=== PATIENT | female | born 1945 | race Caucasian/White ===

== ENCOUNTER 2016-12-31 18:44 | Inpatient (IN) | payer OTHER ==
[~2016-12-31] VITALS: Ht 165.1 cm; Wt 94.7 kg
--- NOTE | ~2016-12-31 | O ---
[facility] [place] [address] OPERATIVE REPORT Name: FLY SALGADO Tony Room #: 306-P [facility] IN .R.#: [id number] Admission: 12/31/16 Attend Phys: Terrence Charles MD Discharge: Date of : 43 Report #: [id number] THIS REPORT FOR: //name// CC: Marielena PATTON DATE OF SERVICE: 01/03/2017 PREOPERATIVE DIAGNOSIS: Left foot fourth toe osteomyelitis. POSTOPERATIVE DIAGNOSIS: Left foot fourth toe osteomyelitis. PROCEDURE: Left foot fourth toe amputation. SURGEON: Lucio Steven MD ANESTHESIA: General. ESTIMATED BLOOD LOSS: Minimal. DRAINS: No drains. TOURNIQUET TIME: 10 minutes. RELIEF DRILLER: ANNE Carter DESCRIPTION OF PROCEDURE: The patient brought to the operating room where she was placed under general anesthesia. Once under adequate general anesthesia, her left lower extremity was prepped and draped in a sterile manner. Extremity was elevated and a tourniquet placed to 250 mmHg. A fishmouth type incision was then made about the proximal phalanx of the fourth toe. This was dissected down through the soft tissue sharply to the bone. Purulence was encountered upon making the skin incisions. Dissection was carried sharply down to the metatarsophalangeal joint where the collateral ligaments were incised and the toe and bone were subsequently removed. The wound was then irrigated copiously and closed with 3-0 nylon for the skin. The wounds were dressed with Xeroform, 4 x 4s, and a sterile soft compressive dressing was placed. Tourniquet was let down approximately 10 minutes. Toes were pink and warm with good capillary refill. There were no complications from the procedure. The patient tolerated the procedure well and went to the recovery room without incident. <ELECTRONICALLY SIGNED> By: Lucio Steven MD 01/04/17 1123 [id number] Lucio Steven MD /nt
--- NOTE | ~2016-12-31 | S ---
[facility] [place] [address] SURGICAL PATH RPT PROCEDURE Name: FLY SALGADO Room #: 306-P ADM IN M.R.#: [id number] Admission: 12/31/16 Date of : 43 Discharge: Report #: [id number] Path Case #: [id number] PATHOLOGY REPORT COLLECTION DATE: 01/03/2017 RECEIVED DATE: 01/04/2017 SUBMITTING PHYS: Dr. Lucio Steven OTHER PHYS: Dr. Marielena Iglesias SPECIMEN(S) RECEIVED: A.Left 4th toe * * * * * * * * * * * * FINAL DIAGNOSIS: Toe, left fourth toe, amputation: - Marked acute inflammation associated with gangrenous necrosis extending into underlying bone, consistent with the provided history of osteomyelitis. - Bone at margin viable and without inflammation. (IUV:mgr; d/t: 01/06/17) PATHOLOGIST: Myriam Plunkett M.D. REPORT ELECTRONICALLY SIGNED BY: Myriam Plunkett M.D. DATE/TIME: 01/06/2017 16:07 * * * * * * * * * * * * GROSS PATHOLOGY: The specimen is received in formalin, labeled "Jose De Jesus-left fourth toe" is a 2 amputation specimen with white skin which measures 4.6 x 2.5 x 2.3 cm. The specimen displays an intact, yellow-romero toenail as well as moderate skin sloughing at the distal aspect. The plantar surface of the specimen at the distal end displays a 1.1 x 0.9 cm brownish red firm ulceration. The bone at the resection margin is jagged and uneven. The surgical resection margin is inked black. Sectioning through the specimens reveals whitish pink unremarkable soft tissue and yellow romero, hard, trabeculated bone. Geriatric Assistant sections of the specimen are submitted in cassette A1 following decalcification. (AKA; 01/05/2017) CLINICAL HISTORY: Osteomyelitis INITIAL CPT CODE(S): [address] [address] SURGICAL PATH RPT PROCEDURE Name: FLY SALGADO Tony Room #: 306-P ADM IN M.R.#: [id number] Admission: 12/31/16 Date of : 43 Discharge: Report #: [id number] Path Case #: [id number]; [id number] Professional services performed by [facility] at [address] , [place] [address] Technical services performed by [facility] at [address] [place] [address], [facility] [address] [address]. [facility] [address] [place] [address] PHONE: [phone] DIRECTOR: Vladislav Batista M.D. * * * END OF REPORT * * *
--- NOTE | ~2016-12-31 | HC ---
[facility] [place] [address] CONSULTATION Name: FLY SALGADO Tony Room #: 306-P [facility] IN ..#: [id number] Admission: 12/31/16 Attend Phys: Marielena Burks Discharge: Date of : 43 Report #: [id number] THIS REPORT FOR: //name// CC: Marielena PATTON DATE OF SERVICE: 01/01/2017 REASON FOR CONSULTATION: Left toe osteomyelitis. HISTORY OF PRESENT ILLNESS: The patient is a 71-year-old female with diabetes and diabetic neuropathy with Charcot left foot and ankle who reports increased pain, fevers and chills for approximately 3-4 days. Her noticed a wound over the plantar surface of her left fourth toe, tried to express some fluid, none was expressed. She reports redness began to spread at the dorsum of her foot and then presented herself to the emergency department to be evaluated. She was evaluated and admitted for IV antibiotics as well as an orthopedic consult. She does not recall any specific injury to her left foot and denies any prior problems. REVIEW OF SYSTEMS: MUSCULOSKELETAL: Denies any other extremity complaints or wounds. NEUROLOGIC: Reports history of diabetic neuropathy and reports absent sensation in both of her feet. PAST MEDICAL HISTORY: Significant for diabetes mellitus that per the patient is not well controlled, hypertension, hyperlipidemia, diabetic neuropathy, history of a PE. PAST SURGICAL HISTORY: Right foot surgery due to an infection, appendectomy, , history of breast cancer with a right lumpectomy and appendectomy. SOCIAL HISTORY: She lives with her , does not use any ambulatory aids. Denies smoking or drinking alcohol. MEDICATIONS: Reported medications include amlodipine, glimepiride, latanoprost, metformin, insulin, gabapentin, warfarin, anastrozole, hydrocodone, lovastatin, and losartan. LABORATORY STUDIES: Done on 12/31/2016 showed white blood cell count 15.7, hemoglobin 11.8, hematocrit 36.9, platelet count 246. White blood cell count done on 01/01/2017 decreased to 14.2. INR on 01/01/2017 is 1.9. Chemistry on 01/01/2017 shows low sodium of 134, elevated glucose at 250. Hemoglobin A1c is pending. PHYSICAL EXAMINATION: [facility] [address] [place] [address] CONSULTATION Name: FLY SALGADO Room #: 306-P [facility] IN [facility].#: [id number] Admission: 12/31/16 Attend Phys: Marielena Burks Discharge: Date of : 43 Report #: [id number] GENERAL: The patient is alert and oriented. She interacts appropriately. She is a well-developed, well-nourished female who converses well. She is in no acute distress. VITAL SIGNS: Most recent vital signs show temperature of 37.7, heart rate is 104, respiratory rate 20, blood pressure 134/76, pulse oximetry is 94% on room air. EXTREMITIES: I am unable to palpate dorsalis pedis or posterior tib pulse. She does have brisk capillary refill. She has a Charcot type deformity to her foot and ankle. She has mild to moderate erythema over the dorsum of her foot to the hindfoot region dorsally. She does not have any plantar erythema. She has a small scab measuring approximately 3 mm over the plantar surface of her fourth toe distally. There is no drainage. RADIOGRAPHS: Three views, AP, lateral and oblique of the left foot showed views of the left fourth toe. She had some diffuse arthritic changes as well as lateral dislocation of the lateral four rays, metacarpals. There appears to be some destruction of the fourth toe distal phalanx. IMPRESSION AND PLAN: Probable left fourth toe osteomyelitis. At this point, we will recommend a CRP and sed rate as well as an MRI to evaluate the extent of the osteomyelitis to determine possible amputation level. The patient most likely will require an amputation of the toe. She will be followed by one of my [facility] (formerly [facility]) partners this weekend. I discussed the diagnosis as well as treatment options and questions were encouraged and answered to the best of my ability. By: [id number] Lani Wolf MD /nt
--- NOTE | ~2016-12-31 | HC ---
[facility] [place] [address] CONSULTATION Name: FLY SALGADO Tony Room #: 306-P [facility].#: [id number] Admission: 12/31/16 Attend Phys: Terrence Charles MD Discharge: 01/07/17 Date of : 43 Report #: [id number] THIS REPORT FOR: //name// CC: Terrence PATTON DATE OF SERVICE: 01/06/2017 WOUND CARE CONSULTATION PERSONAL PHYSICIAN: Marielena Burks M.D. CHIEF COMPLAINT: Surgical wound, left fourth toe. HISTORY OF PRESENT ILLNESS: This is a 71-year-old black female who was admitted through the emergency department for bleeding of the left fourth toe. The patient supposedly states in the past week, she started having pain, swelling and redness on the left fourth toe, extending up to the dorsal aspect of her left foot. The patient states that she did not really have much pain, but just noted bleeding and swelling. The patient had a long-standing history of diabetic neuropathy. The patient states she also had fevers and chills yesterday, which actually prompted her to come to the emergency department and seek treatment. The patient states she has had a previous wound in the past on her right foot after she stepped on a nail, which actually required surgical debridement several years ago. The patient denies any trauma to the left toe. The patient denies any other recent illnesses or concerns. PAST MEDICAL HISTORY: Significant for hypertension, insulin-dependent diabetes, hyperlipidemia, severe diabetic neuropathy, breast cancer with right-sided lumpectomy and previous right foot surgery secondary to infection. CURRENT MEDICATIONS: Multiple, I reviewed the patient's medication list. DRUG ALLERGIES: CODEINE. SOCIAL HISTORY: The patient does not smoke or drink alcohol. FAMILY HISTORY: Not pertinent to current medical condition. REVIEW OF SYSTEMS: CONSTITUTIONAL: The patient had fevers and chills prior to coming to the emergency department, but denies any in the past 24 hours. NEUROLOGIC: The patient denies numbness, tingling or weakness in arms or legs. EYES: No complaints. ENT: No complaints. CARDIAC: The patient denies chest pain, palpitations or peripheral edema. [facility] [address] [place] [address] CONSULTATION Name: FLY SALGADO Tony Room #: 306-P [facility]#: [id number] Admission: 12/31/16 Attend Phys: Terrence Charles MD Discharge: 01/07/17 Date of : 43 Report #: [id number] RESPIRATORY: The patient denies shortness of breath, cough or wheezes. GASTROINTESTINAL: The patient denies nausea, vomiting or abdominal pain. GENITOURINARY: The patient denies urgency or frequency. MUSCULOSKELETAL: No complaints. SKIN: There is a surgical wound amputations on to the left fourth toe. PHYSICAL EXAMINATION: VITAL SIGNS: T-max 36.9 and rest of the vitals are stable. GENERAL: This is an alert and oriented times 3, very pleasant black female who is absolutely in no distress. HEENT: Normocephalic, atraumatic. Mucous membranes are moist. Pupils are round. Sclerae are white. NECK: Without JVD or masses. BACK: Nontender. LUNGS: Clear. HEART: Regular, without murmur. ABDOMEN: Soft, nontender. EXTREMITIES: The patient moves all extremities without difficulty. Distal pulses are slightly diminished, dorsalis pedis and posterior tibial, with 1-2+ edema. Evaluation of the left fourth toe reveals a surgical amputation site which is somewhat macerated with serosanguineous drainage without odor. There is moderate amount of drainage. There are no signs of dehiscence of the incisional site. There are no signs of erythema, warmth or any further signs of cellulitis. No other associated ulcerations on the wound are noted on the left foot. Right lower extremity without ulcerations. Right heel is intact. NEUROLOGIC: Cranial nerves 2-12 are grossly. Motor and sensory grossly intact. LABORATORY DATA: White count 7.9 and hemoglobin 9.4. WOUND CARE COURSE: I spoke at length with the patient and stated that at this point in time, it appears that her wound is slightly more moist than I would like. We will start her on silver alginate to the area and change this once every other day. We will make sure she has home health nurses set up to discharge to continue the dressing changes until she can follow up in my clinic within the next 7-10 days. Given the fact that she has decreased pulses and an open wound on her left lower extremity and the patient states she has not had any arterial Dopplers done to her knowledge, we will check an arterial Doppler, the results of which will be pending at this time. I will also encourage the patient to maximize her oral protein supplementation for healing and once again, encourage her to follow up in my clinic within the next 7-10 days for further evaluation of the wound. IMPRESSION: 1. Methicillin-resistant Staphylococcus aureus infection to the left fourth toe, now status post left fourth toe amputation. 2. Diabetes mellitus. [facility] [address] [place] [address] CONSULTATION Name: FLY SALGADO Room #: 306-P [facility] IN .R.#: [id number] Admission: 12/31/16 Attend Phys: Terrence Charles MD Discharge: 01/07/17 Date of : 43 Report #: [id number] 3. Generalized debility. 4. Hypertension. PLAN: At this point in time, the patient will go home on oral antibiotics per infectious disease recommendations. The patient will follow up with her primary care physician in regards to her diabetes and neuropathy. We will see the patient in my clinic in 7-10 days for further wound followup. We will continue with home health nurses come in out every other day to do silver alginate dressings to the amputation site, and I will maximize the patient's oral protein supplementation as above. I appreciate the ability to consult. <ELECTRONICALLY SIGNED> By: Blaise Kinney MD 01/15/17 1219 [id number] Blaise Kinney MD /nt
--- NOTE | ~2016-12-31 | HC ---
[facility] [place] [address] CONSULTATION Name: FLY SALGADO Tony Room #: 306-P [facility] IN ..#: [id number] Admission: 12/31/16 Attend Phys: Terrence Charles MD Discharge: Date of : 43 Report #: [id number] THIS REPORT FOR: //name// CC: Terrence PATTON DATE OF SERVICE: 01/04/2017 ATTENDING PHYSICIAN: Terrence Charles MD REASON FOR CONSULTATION: MRSA infection, left fourth toe, antibiotic management. HISTORY OF PRESENT ILLNESS: The patient is a 71-year-old -[place] woman, extremely nice person admitted with painful swelling, left fourth toe diagnosed to have osteomyelitis for which she undergoes surgical intervention by Dr. Lucio Steven and consisting of resection of the left fourth toe and drainage of abscess with primary closure. I discussed the patient's situation with Dr. Lucio Steven today who requested that dressing not be removed till tomorrow when we will try to do that together. Cultures of the infected toe revealed growth of group B streptococcus and methicillin-resistant Staphylococcus aureus. Currently, the patient on vancomycin and Zosyn and Dr. Charles requested I evaluate the patient regarding infection and home antibiotic management. The patient is alert, comfortable, in no distress. PAST MEDICAL HISTORY: Diabetes mellitus, Charcot joint of the left foot. History of right breast cancer status post lumpectomy and on treatment with anastrozole. The patient on oral hypoglycemic agents. History of glaucoma. Hypertension. DRUG ALLERGIES: CODEINE. MEDICATIONS: She is on treatment with Zosyn 3.37 grams IV every 6 hours, vancomycin 1 g IV every 12 hours. She is also receiving treatment with losartan, anastrozole, amlodipine, glimepiride, enoxaparin, insulin lispro and insulin detemir, atorvastatin, gabapentin, insulin lispro per sliding scale, calcium carbonate p.r.n., hydrocodone p.r.n., Benadryl p.r.n., fentanyl p.r.n., and warfarin 5 mg daily. SOCIAL HISTORY: See H and P. FAMILY HISTORY: See H and P, old records. REVIEW OF SYSTEMS: Noncontributory. PHYSICAL EXAMINATION: [facility] [address] [place] [address] CONSULTATION Name: FLY SALGADO Room #: [address] [place] [address] [place] [facility].#: [id number] Admission: 12/31/16 Attend Phys: Terrence Charles MD Discharge: Date of : 43 Report #: [id number] GENERAL: Well-developed woman, not toxic looking. VITAL SIGNS: Temperature 100.4 yesterday, 99.3 today, pulse 96, respirations 20, BP 154/99. HEENMT: Head normocephalic, atraumatic. Pupils reactive. Mouth: No thrush. NECK: Supple. No thyromegaly or lymphadenopathy. LUNGS: Clear. HEART: S1, S2. BREASTS: Surgical scar, right breast, status post lumpectomy. LYMPH NODE: Negative. ABDOMEN: Benign, no masses or megaly. PELVIC AND RECTAL: Deferred. EXTREMITIES: Charcot deformity, left foot. Dressings intact and not removed at Dr. Steven's request. NEUROLOGIC: Grossly within normal limits. LABORATORY DATA: Sodium 134, potassium 3.7, BUN 14, creatinine 1, glucose 250, WBC 14.9, hemoglobin 9.3, platelets 297,000. Vancomycin trough was 15 on January 02, repeat today is pending. The hemoglobin A1c elevated 10.7%, average sugars 270. MICROBIOLOGY DATA: Culture of the toe revealed group B streptococcus and methicillin-resistant Staphylococcus aureus. RADIOLOGY EVALUATION: MRI of the foot revealed osteomyelitic changes of the left fourth toe, distal phalanx. No involvement of the proximal phalanx. ASSESSMENT: 1. Osteomyelitis, distal phalanx, left fourth toe, status post surgical resection. 2. Infection with group B streptococcus and methicillin-resistant Staphylococcus aureus. 3. Diabetes mellitus. 4. Charcot joint, left foot. 5. History of right breast cancer. SUGGESTIONS: Recommend to discontinue Zosyn. Continue vancomycin. We will remove the dressings tomorrow and try to make determine what antibiotic to use once she is discharged home. Discussed the patient's situation with Dr. Lucio Steven and Dr. Terrence Charles. Dr. Charles, thank you for requesting my suggestions. <ELECTRONICALLY SIGNED> By: Justin Fernando MD 01/05/17 0845 [id number] Justin Fernando MD /nt
[2016-12-31 18:45] VITALS: BP 131/70
[2016-12-31] MEDS ORDERED: XALATAN2.5 ML OPHTHALMIC (19:11)
[2016-12-31] MEDS ORDERED: METFORMIN HCL1000 MG PO (19:11)
[2016-12-31] MEDS ORDERED: AMLODIPINE BESY10 MG PO (19:11)
[2016-12-31] MEDS ORDERED: AMARYL4 MG PO (19:11)
[2016-12-31] MEDS ORDERED: NOVOLOG FL100 UNIT/M SC (19:12)
[2016-12-31] MEDS ORDERED: NEURONTIN 300300 M1 PO (19:12)
[2016-12-31] MEDS ORDERED: LEVEMIR FL100 UNIT/2 SQ (19:12)
[2016-12-31] MEDS ORDERED: COUMADIN 5 MG TA5 M1 PO (19:13)
[2016-12-31] MEDS ORDERED: ANASTROZOLE1 MG PO (19:14)
[2016-12-31] MEDS ORDERED: LOVASTATIN40 MG PO (19:15)
[2016-12-31] MEDS ORDERED: LOSARTAN-HCTZ1 EAC1 PO (19:15)
[2016-12-31] MEDS ORDERED: OXYCODONE-ACET1 EACH PO (19:15)
[2016-12-31 20:00] LABS: HEMATOCRIT 36.9 % (37.0-47.0); HEMOGLOBIN 11.8 gm/dL (12.0-15.0); MANUAL DIFF YES; MCH 24.5 pg (26.0-34.0); MCV 76.6 fL (80.0-100.0); PLATELET COUNT 246 thou/uL (150-400); RBC 4.82 mil/uL (4.20-5.00); RDW 15.7 % (10.5-14.5); WBC 15.7 thou/uL (4.0-11.0)
[2016-12-31 20:07] LABS: CALCIUM 9.3 mg/dL (8.5-10.1); CREATININE 1.3 mg/dL (0.6-1.0); POTASSIUM 3.5 mmol/L (3.5-5.1)
[2016-12-31 20:27] LABS: ABSOLUTE NEUTROPHILS 11.8 thou/uL (1.4-8.2); TOTAL CELL COUNT 100
[2016-12-31 20:52] VITALS: BP 152/89
[2016-12-31 21:10] VITALS: BP 141/72
[2016-12-31 23:40] VITALS: BP 152/90
[2016-12-31 23:48] LABS: PROTIME 20.4 Seconds (9.3-11.4)
[2017-01-01 03:51] LABS: CALCIUM 8.8 mg/dL (8.5-10.1); POTASSIUM 3.7 mmol/L (3.5-5.1)
[2017-01-01 03:52] LABS: HEMATOCRIT 31.1 % (37.0-47.0); MCH 24.3 pg (26.0-34.0); MCV 75.8 fL (80.0-100.0); RBC 4.11 mil/uL (4.20-5.00); RDW 15.4 % (10.5-14.5); WBC 14.2 thou/uL (4.0-11.0)
[2017-01-01 03:57] LABS: INR 1.9; PROTIME 19.4 Seconds (9.3-11.4)
[2017-01-01 04:20] VITALS: BP 134/76
[2017-01-01 08:22] VITALS: BP 1222/71
[2017-01-01 17:26] VITALS: BP 140/71
[2017-01-01 19:49] VITALS: BP 112/56
[2017-01-02 03:19] LABS: GLYCOHEMOGLOBIN (HGB A1C) 10.7 % (4.8-5.6)
[2017-01-02 03:55] VITALS: BP 128/61
[2017-01-02 05:59] LABS: INR 1.5; PROTIME 15.7 Seconds (9.3-11.4)
[2017-01-02 08:03] VITALS: BP 145/70
[2017-01-02 09:35] LABS: HEMOGLOBIN 10.2 gm/dL (12.0-15.0); MCH 24.3 pg (26.0-34.0); MCV 75.9 fL (80.0-100.0); RBC 4.21 mil/uL (4.20-5.00); RDW 15.9 % (10.5-14.5); WBC 15.4 thou/uL (4.0-11.0)
[2017-01-02 16:37] VITALS: BP 150/79
[2017-01-02 20:06] VITALS: BP 143/74
[2017-01-03 04:20] VITALS: BP 128/64
[2017-01-03 04:49] LABS: ABSOLUTE NEUTROPHILS 9.4 thou/uL (1.4-8.2); BASOPHILS 0.8 % (0.0-2.0); EOSINOPHILS 1.5 % (0.0-3.0); HEMATOCRIT 29.7 % (37.0-47.0); HEMOGLOBIN 9.3 gm/dL (12.0-15.0); LYMPHOCYTES 22.9 % (24.0-44.0); MCHC 31.4 g/dL (28.0-37.0); MCV 76.4 fL (80.0-100.0); MONOCYTES 11.4 % (1.0-8.0); PLATELET COUNT 297 thou/uL (150-400); POLYS 63.4 % (36.0-66.0); RBC 3.88 mil/uL (4.20-5.00); RDW 15.5 % (10.5-14.5); WBC 14.9 thou/uL (4.0-11.0)
[2017-01-03 04:54] LABS: MANUAL DIFF NO
[2017-01-03 05:00] LABS: INR 1.4; PROTIME 14.7 Seconds (9.3-11.4)
[2017-01-03 07:14] VITALS: BP 152/78
[2017-01-03 16:52] VITALS: BP 135/74
[2017-01-03 19:41] VITALS: BP 127/67
[2017-01-04 04:16] VITALS: BP 128/67
[2017-01-04 04:47] LABS: HEMATOCRIT 26.5 % (37.0-47.0); HEMOGLOBIN 8.6 gm/dL (12.0-15.0)
[2017-01-04 05:00] LABS: INR 1.4; PROTIME 14.2 Seconds (9.3-11.4)
[2017-01-04 05:01] LABS: POTASSIUM 3.2 mmol/L (3.5-5.1)
[2017-01-04 08:14] VITALS: BP 154/99
[2017-01-04 20:00] VITALS: BP 156/95
[2017-01-05 03:55] VITALS: BP 143/76
[2017-01-05 06:33] LABS: INR 1.3; PROTIME 13.4 Seconds (9.3-11.4)
[2017-01-05 08:50] VITALS: BP 193/106
[2017-01-05 17:25] VITALS: BP 199/128
[2017-01-05 19:18] VITALS: BP 150/78
[2017-01-06 04:25] VITALS: BP 154/83
[2017-01-06 07:59] VITALS: BP 152/83
[2017-01-06 11:21] LABS: HEMATOCRIT 29.5 % (37.0-47.0); HEMOGLOBIN 9.4 gm/dL (12.0-15.0); MCH 24.3 pg (26.0-34.0); MCHC 31.8 g/dL (28.0-37.0); MCV 76.4 fL (80.0-100.0); RBC 3.86 mil/uL (4.20-5.00); RDW 15.7 % (10.5-14.5); WBC 7.9 thou/uL (4.0-11.0)
[2017-01-06 11:31] LABS: CALCIUM 9.6 mg/dL (8.5-10.1); CREATININE 0.9 mg/dL (0.6-1.0); POTASSIUM 3.5 mmol/L (3.5-5.1)
[2017-01-06 16:50] VITALS: BP 176/95
[2017-01-06 19:24] VITALS: BP 158/84
[2017-01-07 03:12] VITALS: BP 150/83
[2017-01-07 06:33] LABS: INR 1.7; PROTIME 17.7 Seconds (9.3-11.4)
[2017-01-07] MEDS ORDERED: OXYCODONE-ACET1 EACH PO (07:44)
[2017-01-07] MEDS ORDERED: LANTUS100 UNIT/M SUBQ (07:44)
[2017-01-07] MEDS ORDERED: HUMALOG100 UNIT/1 SUBQ (07:44)
[2017-01-07] MEDS ORDERED: AMARYL2 MG PO (07:44)
[2017-01-07] MEDS ORDERED: AUGMENTIN 875875 MG PO (07:44)
[2017-01-07 09:15] VITALS: BP 154/86
[2017-01-07 10:20] VITALS: BP 154/86
[2017-01-07 10:42] VITALS: BP 154/86
[2017-01-07 12:00] VITALS: BP 154/86
[2017-01-07] MEDS ORDERED: MINOCIN100 MG PO (13:01)
[2017-01-07] MEDS ORDERED: AMOXICILLIN 50500 MG PO (13:02)
== END 2017-01-07 13:50 | disposition home health service (06) | DRG 853 ==
LOC: ER 18:44 → 3N 20:17 → EROBS 20:17 → 3N 20:55
PROVIDERS: Family Medicine; Hospitalist; Nurse Practitioner Acute Care; Orthopaedic Surgery Foot and Ankle Surgery; Physician Assistant
PROC: 0Y6W0Z0 Detachment at Left 4th Toe, Complete, Open Approach (ICD-10-PCS; principal; 2017-01-03)
DX: A41.02 Sepsis due to Methicillin resistant Staphylococcus aureus (principal); N17.0 Acute kidney failure with tubular necrosis; L03.116 Cellulitis of left lower limb; M86.8X8 Other osteomyelitis, other site; A52.16 Charcot's arthropathy (tabetic); E11.69 Type 2 diabetes mellitus with other specified complication; I10 Essential (primary) hypertension; E78.5 Hyperlipidemia, unspecified; E11.40 Type 2 diabetes mellitus with diabetic neuropathy, unspecified; I99.9 Unspecified disorder of circulatory system; B95.62 Methicillin resistant Staphylococcus aureus infection as the cause of diseases classified elsewhere; Z88.6 Allergy status to analgesic agent; Z79.899 Other long term (current) drug therapy; Z79.4 Long term (current) use of insulin; Z90.49 Acquired absence of other specified parts of digestive tract; Z85.3 Personal history of malignant neoplasm of breast
CPT/HCPCS: 10094; 50010; 50101; 50386; 50951; 56527; 57091; 62110; 62850; 70005

== ENCOUNTER → 2017-01-14 | Outpatient (CLI) | payer OTHER ==
[~2017-01-14] MED LIST: AMARYL2 MG PO; AMARYL4 MG PO; AMLODIPINE BESY10 MG PO; AMOXICILLIN 50500 MG PO; ANASTROZOLE1 MG PO; AUGMENTIN 875875 MG PO; COUMADIN 5 MG TA5 M1 PO; HUMALOG100 UNIT/1 SUBQ; LANTUS100 UNIT/M SUBQ; LEVEMIR FL100 UNIT/2 SQ; LOSARTAN-HCTZ1 EAC1 PO; LOVASTATIN40 MG PO; METFORMIN HCL1000 MG PO; MINOCIN100 MG PO; NEURONTIN 300300 M1 PO; NOVOLOG FL100 UNIT/M SC; OXYCODONE-ACET1 EACH PO; XALATAN2.5 ML OPHTHALMIC
== END ==
LOC: HYPER 07:13
DX: T81.89XD Other complications of procedures, not elsewhere classified, subsequent encounter (principal); E11.621 Type 2 diabetes mellitus with foot ulcer; L97.521 Non-pressure chronic ulcer of other part of left foot limited to breakdown of skin; I10 Essential (primary) hypertension; E78.5 Hyperlipidemia, unspecified; E11.69 Type 2 diabetes mellitus with other specified complication; M86.9 Osteomyelitis, unspecified; Z79.84 Long term (current) use of oral hypoglycemic drugs; Z79.4 Long term (current) use of insulin; Z79.02 Long term (current) use of antithrombotics/antiplatelets; Z86.718 Personal history of other venous thrombosis and embolism; Y83.8 Other surgical procedures as the cause of abnormal reaction of the patient, or of later complication, without mention of misadventure at the time of the procedure

== ENCOUNTER → 2017-02-01 | Outpatient (CLI) | payer OTHER | LOC: HYPER 06:58 | DX: T81.89XA Other complications of procedures, not elsewhere classified, initial encounter (principal); E11.621 Type 2 diabetes mellitus with foot ulcer; L97.521 Non-pressure chronic ulcer of other part of left foot limited to breakdown of skin; I10 Essential (primary) hypertension; E78.5 Hyperlipidemia, unspecified; E11.69 Type 2 diabetes mellitus with other specified complication; M86.68 Other chronic osteomyelitis, other site; Z86.718 Personal history of other venous thrombosis and embolism; Z79.4 Long term (current) use of insulin; Z48.817 Encounter for surgical aftercare following surgery on the skin and subcutaneous tissue; Z89.422 Acquired absence of other left toe(s); Z79.84 Long term (current) use of oral hypoglycemic drugs; Z79.02 Long term (current) use of antithrombotics/antiplatelets; Y83.8 Other surgical procedures as the cause of abnormal reaction of the patient, or of later complication, without mention of misadventure at the time of the procedure ==

== ENCOUNTER → 2017-02-15 | Outpatient (CLI) | payer OTHER | LOC: HYPER 07:05 | DX: E11.621 Type 2 diabetes mellitus with foot ulcer (principal); L97.521 Non-pressure chronic ulcer of other part of left foot limited to breakdown of skin; I10 Essential (primary) hypertension; E78.5 Hyperlipidemia, unspecified; E11.69 Type 2 diabetes mellitus with other specified complication; M86.68 Other chronic osteomyelitis, other site; Z48.817 Encounter for surgical aftercare following surgery on the skin and subcutaneous tissue; Z79.4 Long term (current) use of insulin; Z79.84 Long term (current) use of oral hypoglycemic drugs; Z79.02 Long term (current) use of antithrombotics/antiplatelets; Z86.718 Personal history of other venous thrombosis and embolism ==

== ENCOUNTER → 2017-03-09 | Outpatient (CLI) | payer OTHER | LOC: HYPER 07:06 | DX: T81.89XD Other complications of procedures, not elsewhere classified, subsequent encounter (principal); E11.621 Type 2 diabetes mellitus with foot ulcer; L97.521 Non-pressure chronic ulcer of other part of left foot limited to breakdown of skin; Z48.817 Encounter for surgical aftercare following surgery on the skin and subcutaneous tissue; Z89.422 Acquired absence of other left toe(s); Z79.84 Long term (current) use of oral hypoglycemic drugs; Z79.4 Long term (current) use of insulin; Z79.02 Long term (current) use of antithrombotics/antiplatelets; I10 Essential (primary) hypertension; E78.5 Hyperlipidemia, unspecified; Z86.718 Personal history of other venous thrombosis and embolism; E11.69 Type 2 diabetes mellitus with other specified complication; M86.8X8 Other osteomyelitis, other site; Y83.8 Other surgical procedures as the cause of abnormal reaction of the patient, or of later complication, without mention of misadventure at the time of the procedure ==